=== PATIENT | female | born 1950 | race Caucasian/White ===

== ENCOUNTER 2017-12-28 11:04 | Emergency (ER) | payer OTHER, MEDICAID ==
[~2017-12-28] VITALS: Ht 154.9 cm; Wt 66.2 kg
[2017-12-28 11:14] VITALS: BP 156/99; Ht 154.9 cm; Wt 66.2 kg
== END 2017-12-28 13:05 | disposition home or self-care (01) ==
LOC: ED 11:04
DX: K13.79 Other lesions of oral mucosa (principal); R68.84 Jaw pain; I10 Essential (primary) hypertension
CPT/HCPCS: J1885